=== PATIENT | female | born 1985 | race Asian ===

== ENCOUNTER 2019-03-20 23:19 | Emergency (ER) | payer OTHER ==
[~2019-03-20] VITALS: Ht 144.8 cm; Wt 45.0 kg
[~2019-03-20 23:19] MED LIST: PREN1TAB62 PO
[2019-03-20 23:22] VITALS: BP 140/65; PULSE 89; RESP 18; Ht 144.8 cm; Wt 45.0 kg
--- NOTE | 2019-03-21 00:06 | ERD ---
ER Documentation Chief Complaint Chief Complaint NEEDLE STICK TODAY; DID NEEDLE STICK PROTOCOL HPI Patient is a 33-year-old female, no past medical history, presents the ER for concerns of a needlestick injury which occurred prior to arrival. 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 Patient reports getting poked by a dirty Lantus needle which was being used for 1 of her patients. Patient was poked in her left index finger. Patient provides the name of the patient who poked her. Patient reports following the needlestick protocol. ROS All systems reviewed and are negative except as per history of present illness. Medications Home Meds Reported Medications Vit-Iron Fumarate-FA ( Vitamin Tablet) 1 Each Tablet, 1 EACH PO DAILY 10/27/13 Allergies Allergies: Coded Allergies: No Known Drug Allergies (Unverified Allergy, 10/27/13) FmHx Family History: No diabetes Physical Exam Vitals Vital Signs Date Temp Pulse Resp B/P (MAP) Pulse Ox O2 O2 Flow FiO2 Time Delivery Rate 03/20/19 97.5 89 18 140/65 99 23:22 (90) Physical Exam GENERAL: Well-developed, well-nourished female. Appears in no acute distress. Speaking full sentences. HEAD: Normocephalic, atraumatic. EYES: Pupils are equally reactive bilaterally. EOMs grossly intact. No conjunctival erythema. ENT: Moist mucous membranes. No uvula deviation. No kissing tonsils. NECK: Supple. No meningismus. Normal range of motion of the neck. LUNG: Clear to auscultation bilaterally. No rhonchi, wheezing, rales or coarse breath sounds. HEART: Regular rate and rhythm. No murmurs, rubs or gallops. EXTREMITIES: Equal pulses bilaterally. No peripheral clubbing, cyanosis or edema. No unilateral leg swelling. NEUROLOGIC: Alert and oriented. Moving all four extremities without any difficulty. Normal speech. Steady gait. SKIN: Normal color. Warm and dry. No rashes or lesions. Pinpoint puncture wound noted on the patient's left index finger. No active bleeding. Procedures/MDM MEDICAL DECISION MAKING: Patient is a 33-year-old female, no past medical history, presents the ER for concerns of a needlestick injury which occurred prior to arrival. 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 Vital signs were reviewed. Patient is afebrile. Patient was not hypoxic. Patient was hemodynamically stable. Patient is aware of source patient. Discussed case with supervising physician Dr. Welch. Together we reviewed the source patient's serology, which was negative for active hepatitis A, hepatitis B or hepatitis C. No records of HIV status noted. Dr. Welch will contact hospitalist (Dr. Arechiga) who is managing the care of the source patient. Will discuss obtaining HIV status from the patient and appropriate lab tests. Needlestick protocol labs were ordered on the patient here in the ER. Patient advised she can contact medical records for the results. Patient was offered HIV prophylaxis medication however she declined at this time. DISCHARGE: At this time, patient is stable for discharge and outpatient management. I have instructed the patient to follow-up with his/her primary care physician in 1-2 days. I have discussed with the patient the possibility of needing to see a specialist for further workup and imaging studies if symptoms persist. I have instructed the patient to promptly return to the ER for any new or worsening symptoms including increased pain, fever, nausea, vomiting, weakness or LOC. The patient and/or family expressed understanding of and agreement with this plan. All questions were answered. Home care instructions were provided. Disclaimer: Inadvertent spelling and grammatical errors are likely due to EHR/dictation software use and do not reflect on the overall quality of patient care. Also, please note that the electronic time recorded on this note does not necessarily reflect the actual time of the patient encounter. Departure Diagnosis: Primary Impression: Needlestick injury accident Condition: Fair Patient Instructions: Standard Precautions: [place] and [place] Referrals: [facility] YOU HAVE RECEIVED A MEDICAL SCREENING EXAM AND THE RESULTS INDICATE THAT YOU DO NOT HAVE A CONDITION THAT REQUIRES URGENT TREATMENT IN THE EMERGENCY DEPARTMENT. FURTHER EVALUATION AND TREATMENT OF YOUR CONDITION CAN WAIT UNTIL YOU ARE SEEN IN YOUR DOCTORS OFFICE WITHIN THE NEXT 1-2 DAYS. IT IS YOUR RESPONSIBILITY TO MAKE AN APPOINTMENT FOR FOLOW-UP CARE. IF YOU HAVE A PRIMARY DOCTOR --you should call your primary doctor and schedule an appointment IF YOU DO NOT HAVE A PRIMARY DOCTOR YOU CAN CALL OUR PHYSICIAN REFERRAL HOTLINE AT IF YOU CAN NOT AFFORD TO SEE A PHYSICIAN YOU CAN CHOSE FROM THE FOLLOWING [facility] [address] [facility]. [facility] [address] [facility] [address] [facility] [address] [facility] [address] [facility]. [facility] [address] [facility]. [facility] YOU HAVE RECEIVED A MEDICAL SCREENING EXAM AND THE RESULTS INDICATE THAT YOU DO NOT HAVE A CONDITION THAT REQUIRES URGENT TREATMENT IN THE EMERGENCY DEPARTMENT. FURTHER EVALUATION AND TREATMENT OF YOUR CONDITION CAN WAIT UNTIL YOU ARE SEEN IN YOUR DOCTORS OFFICE WITHIN THE NEXT 1-2 DAYS. IT IS YOUR RESPONSIBILITY TO MAKE AN APPOINTMENT FOR FOLOW-UP CARE. IF YOU HAVE A PRIMARY DOCTOR --you should call your primary doctor and schedule and appointment IF YOU DO NOT HAVE A PRIMARY DOCTOR YOU CAN CALL OUR PHYSICIAN REFERRAL HOTLINE AT . IF YOU CAN NOT AFFORD TO SEE A PHYSICIAN YOU CAN CHOSE FROM THE FOLLOWING [facility] INSTITUTIONS: [facility] [address] [place] [address] [facility] [address] [place] [address] [facility] + [facility] [address] [place] [address] Additional Instructions: Lab results are pending at this time. Follow-up for results. Follow-up with employee health for additional blood draws. Call your primary care doctor TOMORROW for an appointment during the next 1-2 days.See the doctor sooner or return here if your condition worsens before your appointment time. RAZA HESS PA-C Mar 21, 2019 00:06
== END 2019-03-21 01:43 | disposition home or self-care (01) ==
LOC: FTE 23:19
DX: S61.201A Unspecified open wound of left index finger without damage to nail, initial encounter (principal); W46.1XXA Contact with contaminated hypodermic needle, initial encounter; Y92.9 Unspecified place or not applicable
CPT/HCPCS: 80076; 85025; 86703; 86706; 86803; 87340; 99283